=== PATIENT | male | born 1995 | race Caucasian/White ===

== ENCOUNTER 2021-11-08 09:25 | Inpatient (IN) | payer OTHER ==
[2021-11-08] MEDS ORDERED: SODIUM CHLORIDE 0.9% 500 ML 500 ML IV STA (09:57)
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
[2021-11-08 10:43] LABS: Basophils % (A) 0 %; Eosinophils # (A) 0.1 k/uL (0-0.7); Eosinophils % (A) 1 %; HCT 46.9 % (39.0-53.0); HGB 15.9 gm/dL (13.0-17.5); Lymphocytes # (A) 1.4 k/uL (1.0-4.8); Lymphocytes % (A) 13 %; MCH 31.8 pg (25.0-35.0); MCHC 33.8 g/dL (31.0-37.0); Mean Platelet Volume 8.1; Monocytes # (A) 0.6 k/uL (0-1.0); Monocytes % (A) 5 %; Neutrophils # (A) 8.8 k/uL (1.3-7.7); Neutrophils % (A) 80 %; Platelet Count 258 k/uL (150-450); RDW 12.8 % (11.5-15.5)
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
[2021-11-08 10:54] LABS: ALT 27 U/L (4-49); AST 62 U/L (17-59); African American GFR (CKD) >90 (>60 ml/min/1.73 sqM); Albumin 4.7 g/dL (3.5-5.0); Alcohol 63 mg/dL; Alkaline Phosphatase 66 U/L (38-126); Anion Gap 12 mmol/L; Blood Urea Nitrogen 10 mg/dL (9-20); Calcium 9.7 mg/dL (8.4-10.2); Carbon Dioxide 23 mmol/L (22-30); Chloride 106 mmol/L (98-107); Glucose 102 mg/dL (74-99); Non-African American GFR(CKD) >90 (>60 ml/min/1.73 sqM); Potassium 4.1 mmol/L (3.5-5.1); Sodium 141 mmol/L (137-145); Total Bilirubin 0.3 mg/dL (0.2-1.3); Total Protein 7.5 g/dL (6.3-8.2)
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
[2021-11-08] MEDS ORDERED: SODIUM CHLORIDE 0.9% 1,000 ML IV ONE (11:21)
[2021-11-08 13:03] LABS: Amphetamine Screen,Urine Not Detected (NotDetected); Barbiturate Screen,Urine Not Detected (NotDetected); Benzodiazepines Screen,Urine Not Detected (NotDetected); Cocaine Screen,Urine Not Detected (NotDetected); Methadone Screen, Urine Not Detected (NotDetected); Opiate Screen,Urine Not Detected (NotDetected); Oxycodone Screen, Urine Not Detected (NotDetected); Phencyclidine Screen,Urine Not Detected (NotDetected); Tricyclic Antidepressant,Urine Not Detected (NotDetected); Urn Cannabinoid Scrn Detected (NotDetected)
[2021-11-08] MEDS: HYDROmorphone 0.5 MG/0.5 ML SYRINGE IVP PRN ×3 (13:17→22:05)
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
[2021-11-08] MEDS ORDERED: DEXAMETHASONE SOD PHOSPHATE 4 MG/ML 1 ML VIAL IV PRN (16:12)
[2021-11-08] MEDS: HYDROcodone/APAP 5-325MG 1 EACH TAB PO PRN ×2 (16:13→23:25)
[2021-11-08] MEDS: LACTATED RINGERS 1,000 ML IV SCH (16:29)
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
[2021-11-08] MEDS: traMADol 50 MG TAB PO SCH ×2 (18:40→22:04)
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
[2021-11-08 20:28] LABS: Partial Thromboplastin Time 24.8 sec (22.0-30.0)
[2021-11-08] MEDS: ACETAMINOPHEN IV (For NPO) 1,000 MG in EMPTY BAG 1 BAG IVPB PRN (20:41)
[2021-11-09] MEDS: HYDROmorphone 0.5 MG/0.5 ML SYRINGE IVP PRN ×2 (01:08→05:05)
[2021-11-09 03:31] LABS: INR 0.9 (<1.2); Prothrombin Time 10.4 sec (9.0-12.0)
[2021-11-09] MEDS: ACETAMINOPHEN IV (For NPO) 1,000 MG in EMPTY BAG 1 BAG IVPB PRN (03:47)
[2021-11-09] MEDS ORDERED: ONDANSETRON 4 MG/2 ML VIAL IVP PRN (07:00)
--- NOTE | 2021-11-09 07:42 | P.PN ---
Progress Note - Text Progress Note Date: 11/09/21 Pt s/e. No acute events overnight. Discussed risks and benefits again of surgery and he agreed. We plan on OR today. NPO confirmed. Consent confirmed. C5-6 ACDF for C5 AO F3/4 N1, M1 fracture with Grade I anterior listhesis.
[2021-11-09] MEDS: HYDROcodone/APAP 5-325MG 1 EACH TAB PO PRN (08:08)
[2021-11-09] MEDS: traMADol 50 MG TAB PO SCH ×3 (08:11→17:00)
[2021-11-09 10:28] VITALS: BMI 31.6
[2021-11-09] MEDS ORDERED: IV FLUID CONTINUATION 200 ML IV ONE (11:36)
[2021-11-09] MEDS ORDERED: PANTOPRAZOLE 40 MG/10 ML VIAL IVP SCH (11:45)
[2021-11-09] MEDS ORDERED: DEXAMETHASONE SOD PHOSPHATE 4 MG/ML 1 ML VIAL IV ONE (12:02)
[2021-11-09] MEDS ORDERED: ONDANSETRON 4 MG/2 ML VIAL IVP ONE (12:02)
[2021-11-09] MEDS: LACTATED RINGERS 1,000 ML IV SCH ×2 (12:12→12:17)
[2021-11-09] MEDS ORDERED: LACTATED RINGERS 1,000 ML IV SCH (12:15)
[2021-11-09] MEDS ORDERED: TRANEXAMIC ACID 1,000 MG in SODIUM CHLORIDE 0.9% 100 ML IV STA (12:37)
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
[2021-11-09] MEDS ORDERED: THROMBIN (BOVINE) 5,000 UNIT VIAL TOPICAL ONE (13:43)
[2021-11-09] MEDS ORDERED: GELATIN SPONGE,ABSORB (LARGE) 1 EACH SPONGE MISCELLANE ONE (13:43)
[2021-11-09] MEDS ORDERED: NICOTINE 21MG/24HR PATCH TRANSDERM SCH (14:00)
--- NOTE | 2021-11-09 14:21 | FL ---
EXAMINATION TYPE: FL guidance operating room DATE OF EXAM: 11/09/2021 HISTORY: Fluoroscopy time 22 seconds of fluoroscopy provided. IMPRESSION: 1. Fluoroscopy time.
--- NOTE | 2021-11-09 14:22 | XR ---
EXAMINATION TYPE: XR cervical spine limited DATE OF EXAM: 11/09/2021 COMPARISON: NONE HISTORY: Postsurgical TECHNIQUE: 7 views submitted FINDINGS: Tracheostomy tube noted Orthopedic instrument anterior to the cervical spine. Postsurgical changes are appearing near-anatomic alignment. IMPRESSION: Postop
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
--- NOTE | 2021-11-09 15:30 | P.PN ---
Progress Note - Text Progress Note Date: 11/09/21 Brief Post Op Check: Patient s/e. Doing well. Waking up still slightly groggy. Able to move all 4 ext with good strength. No focal deficits. SILT all 4 ext. Distal pulses intact. Dressing is CDI. Drain in place and holding suction. Pain currently c ontrolled. No other issues. VSS. Will follow closely.
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
[2021-11-09 15:42] VITALS: RESP 16
[2021-11-09] MEDS ORDERED: LACTATED RINGERS 1,000 ML IV ONE (16:01)
[2021-11-09 16:13] VITALS: PULSE 50
[2021-11-09 18:32] VITALS: TEMP 98
[2021-11-09 18:33] VITALS: BP 146/86
--- NOTE | 2021-11-09 20:09 | P.PN ---
Progress Note - Text Progress Note Date: 11/09/21 I was contacted by the nursing staff regarding patient demanding to leave AGAINST MEDICAL ADVICE. I spoke with the patient directly regarding this. He stated to me that he was told earlier today prior to his surgery by someone in the hospital that his insurance would not cover his hospital stay. I tried on many different occasions to explain to the patient that we wouldn't contact the proper department in the morning and get to the bottom of this financial matters. I explained that he underwent a very severe surgery and has a very significant injury and that inpatient hospital stay would be his best option. I explained to the patient that he underwent a anesthesia less than 12 hours and that is very high risk factor for him to leave the hospital. Patient was again made aware of all the risk factors The patient left the hospital AGAINST MEDICAL ADVICE. Patient was still adamant leaving the hospital against medical advise. I spoke with the patient in the nursing staff regarding the need for follow-up in the outpatient setting by Dr. Pace on 11/10/2021 for removal of the drain and recheck of his clinical status, this to include prescriptions for pain medication and antibiotics. Our office information was provided to the patient prior to discharge.
[2021-11-10] MEDS ORDERED: HYDROmorphone 0.5 MG/0.5 ML SYRINGE IVP PRN (07:00)
== END 2021-11-09 20:41 | disposition left against medical advice (07) | DRG 473 ==
LOC: EC 09:25 → 5NMEDONC 11:21
PROVIDERS: ADMIT Orthopaedic Surgery; ATTEND Orthopaedic Surgery
PROC: 0RB30ZZ Excision of Cervical Vertebral Disc, Open Approach (ICD-10-PCS; 2021-11-09)
PROC: 01N10ZZ Release Cervical Nerve, Open Approach (ICD-10-PCS; 2021-11-09)
PROC: 0PS304Z Reposition Cervical Vertebra with Internal Fixation Device, Open Approach (ICD-10-PCS; 2021-11-09)
PROC: 4A11X4G Monitoring of Peripheral Nervous Electrical Activity, Intraoperative, External Approach (ICD-10-PCS; 2021-11-09)
PROC: BR141ZZ Fluoroscopy of Cervical Facet Joint(s) using Low Osmolar Contrast (ICD-10-PCS; 2021-11-09)
PROC: 0RG10A0 Fusion of Cervical Vertebral Joint with Interbody Fusion Device, Anterior Approach, Anterior Column, Open Approach (ICD-10-PCS; principal; 2021-11-09 09:10)
DX: S12.500A Unspecified displaced fracture of sixth cervical vertebra, initial encounter for closed fracture (principal); S12.400A Unspecified displaced fracture of fifth cervical vertebra, initial encounter for closed fracture; M43.12 Spondylolisthesis, cervical region; M54.12 Radiculopathy, cervical region; S00.211A Abrasion of right eyelid and periocular area, initial encounter; F90.9 Attention-deficit hyperactivity disorder, unspecified type; Z20.822 Contact with and (suspected) exposure to COVID-19; Y90.3 Blood alcohol level of 60-79 mg/100 ml; V89.2XXA Person injured in unspecified motor-vehicle accident, traffic, initial encounter; F17.210 Nicotine dependence, cigarettes, uncomplicated; V58.5XXA Driver of pick-up truck or van injured in noncollision transport accident in traffic accident, initial encounter; Y92.410 Unspecified street and highway as the place of occurrence of the external cause; Y92.59 Other trade areas as the place of occurrence of the external cause; Z85.038 Personal history of other malignant neoplasm of large intestine; Z87.19 Personal history of other diseases of the digestive system; Z90.49 Acquired absence of other specified parts of digestive tract; Z86.010 Personal history of colon polyps
CPT/HCPCS: 36415; 70450; 71045; 72040; 72125; 72141; 72170; 80053; 80306; 80320; 84484; 85025; 85610; 85730; 86850; 86900; 86901; 87635; 93005; 99285